=== PATIENT | female | born 2000 | race American Indian/Alaskan Native ===

== ENCOUNTER 2020-04-09 21:47 | Emergency (ER) | payer SELFPAY ==
[2020-04-09] MEDS ORDERED: diphenhydrAMINE 50 MG/ML VIAL IV ONE (22:02)
[2020-04-09] MEDS ORDERED: SODIUM CHLORIDE 0.9% 1000 ML 1,000 ML IV ONE (22:02)
[2020-04-09] MEDS ORDERED: ACETAMINOPHEN 500 MG TAB PO ONE (22:02)
--- NOTE | 2020-04-09 22:10 | Emergency Department Report ---
ED General Adult HPI - General Stated complaint: HEADACHE/BODYACHE Time Seen by Provider: 04/09/20 22:03 Source: patient, RN notes reviewed - History of Present Illness Initial comments: Patient is a 19-year-old -[place] female who presents for headache generalized malaise with body aches x3 days. Patient states intermittent fever but no fever noted in triage today. Patient denies nausea vomiting she is tolerating p.o. intake. Last menstrual cycle 1 month ago. Symptoms are exacerbated by activity. Patient denies chest pain or shortness of breath. - Related Data Previous Rx's Medication Instructions Recorded Last Taken Type Famotidine [Pepcid] 20 mg PO BID #60 tablet 04/10/20 Unknown Rx diphenhydrAMINE [Benadryl CAP] 25 mg PO Q6HR PRN #30 capsule 04/10/20 Unknown Rx predniSONE [Deltasone] 40 mg PO QDAY 5 Days #10 tab 04/10/20 Unknown Rx Allergies Allergy/AdvReac Type Severity Reaction Status Date / Time clindamycin Allergy Hives Verified 04/09/20 22:02 ED Review of Systems ROS: Stated complaint: HEADACHE/BODYACHE Other details as noted in HPI Constitutional: malaise. denies: chills, fever Eyes: denies: eye pain, eye discharge, vision change ENT: denies: ear pain, throat pain Respiratory: denies: cough, shortness of breath, wheezing Cardiovascular: denies: chest pain, palpitations Endocrine: no symptoms reported Gastrointestinal: nausea. denies: abdominal pain, vomiting Genitourinary: denies: urgency, dysuria, discharge Musculoskeletal: back pain, other (body ache ) Skin: denies: rash, lesions Neurological: headache. denies: weakness, numbness, paresthesias, confusion Psychiatric: denies: anxiety, depression Hematological/Lymphatic: denies: easy bleeding, easy bruising ED Past Medical Hx - Medications Home Medications: Home Medications Medication Instructions Recorded Confirmed Last Taken Type Famotidine [Pepcid] 20 mg PO BID #60 tablet 04/10/20 Unknown Rx diphenhydrAMINE [Benadryl CAP] 25 mg PO Q6HR PRN #30 capsule 04/10/20 Unknown Rx predniSONE [Deltasone] 40 mg PO QDAY 5 Days #10 tab 04/10/20 Unknown Rx ED Physical Exam - General General appearance: alert, in no apparent distress - Head Head exam: Present: atraumatic, normocephalic - Eye Eye exam: Present: normal appearance, PERRL, EOMI Pupils: Present: normal accommodation - ENT ENT exam: Present: normal orophraynx, mucous membranes moist, TM's normal bilaterally, normal external ear exam - Neck Neck exam: Present: normal inspection, full ROM. Absent: tenderness, lymphadenopathy - Respiratory Respiratory exam: Present: normal lung sounds bilaterally. Absent: respiratory distress, wheezes, stridor, chest wall tenderness - Cardiovascular Cardiovascular Exam: Present: regular rate, tachycardia, normal heart sounds - GI/Abdominal GI/Abdominal exam: Present: soft, normal bowel sounds. Absent: distended, tenderness, guarding, rebound, rigid, bruit, hernia - Rectal Rectal exam: Present: deferred - Extremities Exam Extremities exam: Present: normal inspection, full ROM. Absent: tenderness, pedal edema, joint swelling - Back Exam Back exam: Present: normal inspection, full ROM. Absent: tenderness, CVA tenderness (R), CVA tenderness (L) - Neurological Exam Neurological exam: Present: alert, oriented X3, CN II-XII intact, normal gait, reflexes normal - Expanded Neurological Exam Expanded Patient oriented to: Present: person, place, time Speech: Present: fluid speech Motor strength exam: RUE: 5, LUE: 5, RLE: 5, LLE: 5 Best Eye Response ([place]): (4) open spontaneously Best Motor Response (Jassi): (6) obeys commands Best Verbal Response (Jassi): (5) oriented [place] Total: 15 - Psychiatric Psychiatric exam: Present: normal affect, normal mood - Skin Skin exam: Present: warm, dry, intact, normal color. Absent: rash ED Course Vital Signs 04/09/20 21:58 Temperature 99.2 F Pulse Rate 125 H Respiratory 18 Rate Blood Pressure 105/67 O2 Sat by Pulse 98 Oximetry ED Medical Decision Making - Lab Data Result diagrams: 04/09/20 22:46 Labs 04/09/20 04/09/20 22:03 22:46 WBC 11.2 H RBC 4.56 Hgb 11.6 Hct 35.6 MCV 78 L MCH 25 L MCHC 33 RDW 16.5 H Plt Count 286 Add Manual Diff Complete Total Counted 100 Seg Neuts % (Manual) 82.0 H Band Neutrophils % 6.0 Lymphocytes % (Manual) 12.0 L Nucleated RBC % Not Reportable Seg Neutrophils # Man 9.2 H Band Neutrophils # 0.7 Lymphocytes # (Manual) 1.3 Abs React Lymphs (Man) 0.0 Monocytes # (Manual) 0.0 Eosinophils # (Manual) 0.0 Basophils # (Manual) 0.0 Metamyelocytes # 0.0 Myelocytes # 0.0 Promyelocytes # 0.0 Blast Cells # 0.0 WBC Morphology Not Reportable Hypersegmented Neuts Not Reportable Hyposegmented Neuts Not Reportable Hypogranular Neuts Not Reportable Smudge Cells Not Reportable Toxic Granulation Not Reportable Toxic Vacuolation Not Reportable Dohle Bodies Not Reportable Pelger-Huet Anomaly Not Reportable Joseph[place] Rods Not Reportable Platelet Estimate Consistent w auto Clumped Platelets Not Reportable Plt Clumps, EDTA Not Reportable Large Platelets Not Reportable Giant Platelets Not Reportable Platelet Satelliting Not Reportable Plt Morphology Comment Not Reportable RBC Morphology Not Reportable Dimorphic RBCs Not Reportable Polychromasia Not Reportable Hypochromasia Not Reportable Poikilocytosis Not Reportable Anisocytosis Not Reportable Microcytosis Not Reportable Macrocytosis Not Reportable Spherocytes 1+ Pappenheimer Bodies Not Reportable Sickle Cells Not Reportable Target Cells Not Reportable Tear Drop Cells Not Reportable Ovalocytes Not Reportable Helmet Cells Not Reportable [place] Bodies Not Reportable [place] Rings Not Reportable [place] Cells Not Reportable Bite Cells Not Reportable Crenated Cell Not Reportable Elliptocytes Not Reportable Acanthocytes (Spur) Not Reportable Rouleaux Not Reportable Hemoglobin C Crystals Not Reportable Schistocytes Not Reportable Malaria parasites Not Reportable Jaun Bodies Not Reportable Hem Pathologist Commnt No Urine Color Yellow Urine Turbidity Slightly-cloudy Urine pH 5.0 Ur Specific [place] 1.017 Urine Protein <15 mg/dl Urine Glucose (UA) Neg Urine Ketones 20 Urine Blood Neg Urine Nitrite Neg Urine Bilirubin Neg Urine Urobilinogen < 2.0 Ur Leukocyte Esterase Neg Urine WBC (Auto) 3.0 Urine RBC (Auto) 2.0 U Epithel Cells (Auto) 3.0 Urine Mucus Few Urine HCG, Qual Negative - Medical Decision Making Headache is resolved with medications given in ED. Patient encouraged to co ntinue to hydrate. Tylenol or Benadryl as needed headache follow-up primary care doctor in 2 to 3 days patient verbalizes agreement and understanding with discharge plan. Patient DC'd home in stable condition at this time.repeat vitals with in normal limits. Critical care attestation.: If time is entered above; I have spent that time in minutes in the direct care of this critically ill patient, excluding procedure time. ED Disposition Clinical Impression: Mild dehydration Headache Qualifiers: Headache type: unspecified Headache chronicity pattern: acute headache Intractability: not intractable Qualified Code(s): R51.9 - Headache, unspecified Disposition: DC-01 TO HOME OR SELFCARE Is pt being admited?: No Does the pt Need Aspirin: No Condition: Stable Instructions: Dehydration, Adult, [id number], General Headache Without Cause Additional Instructions: take medicationst as prescribed , return to ed if symptoms worsen Prescriptions: diphenhydrAMINE [Benadryl CAP] 25 mg PO Q6HR PRN #30 capsule PRN Reason: Headache predniSONE [Deltasone] 40 mg PO QDAY 5 Days #10 tab Famotidine [Pepcid] 20 mg PO BID #60 tablet Referrals: PRIMARY MD MORELIA [Primary Care Provider] - 3-5 Days DANNY SOTO MD [Staff Physician] - 3-5 Days Forms: Work/School Release Form(ED) Time of Disposition: 04:13
[2020-04-09 23:34] LABS: Bilirubin,Urine NEG (Negative); Blood,Urine NEG (Negative); Color,Urine Yellow (Yellow); Mucus,Urine FEW /HPF; Protein,Urine <15 mg/dL mg/dL (Negative); Urobilinogen,Urine < 2.0 mg/dL (<2.0)
[2020-04-09 23:52] LABS: Hematocrit 35.6 % (30.3-42.9); Hemoglobin 11.6 gm/dl (10.1-14.3); Mean Corpuscular HGB Conc 33 % (30-34); Mean Corpuscular Volume 78 fl (79-97); Platelet Count 286 K/mm3 (140-440); Red Blood Count 4.56 M/mm3 (3.65-5.03); Red Cell Distribution Width 16.5 % (13.2-15.2)
[2020-04-10] MEDS ORDERED: SODIUM CHLORIDE 0.9% 1000 ML 1,000 ML IV ONE (00:02)
[2020-04-10] MEDS ORDERED: diphenhydrAMINE 50 MG/ML VIAL IV ONE (00:02)
[2020-04-10] MEDS ORDERED: ACETAMINOPHEN 500 MG TAB PO ONE (00:02)
[2020-04-10 00:03] LABS: HCG Qualitative,Urine Negative (Negative)
[2020-04-10 03:30] LABS: Band Neutrophils # (Manual) 0.7 K/mm3; Platelet Estimate Consistent w Auto; Spherocytes 1+; Total Cells Counted 100
[2020-04-10 06:18] VITALS: BP 102/78
== END 2020-04-10 04:15 | disposition home or self-care (01) ==
LOC: ED 21:47
DX: R51.9 Headache, unspecified (principal); E86.0 Dehydration; Z79.899 Other long term (current) drug therapy; Z88.8 Allergy status to other drugs, medicaments and biological substances
CPT/HCPCS: 36415; 81001; 81025; 85007; 85025; 96361; 96374; 99283; J1200; J7030

== ENCOUNTER 2021-08-14 19:41 | Emergency (ER) | payer SELFPAY ==
[2021-08-14 20:42] LABS: Basophils % (Auto) 0.2 % (0.0-1.8); Hematocrit 40.8 % (30.3-42.9); Lymphocytes # (Auto) 0.5 K/mm3 (1.2-5.4); Lymphocytes % (Auto) 4.7 % (13.4-35.0); Mean Corpuscular HGB Conc 34 % (30-34); Mean Corpuscular Volume 87 fl (79-97); Monocytes # (Auto) 0.6 K/mm3 (0.0-0.8); Monocytes % (Auto) 5.4 % (0.0-7.3); Platelet Count 318 K/mm3 (140-440); Red Cell Distribution Width 13.5 % (13.2-15.2)
[2021-08-14 21:07] LABS: Alanine Aminotransferase 23 units/L (7-56); Albumin 4.9 g/dL (3.9-5); Blood Urea Nitrogen 14 mg/dL (7-17); Calcium 9.8 mg/dL (8.4-10.2); Hemolysis Index 3
[2021-08-14 21:13] LABS: BUN/Creatinine Ratio 20
[2021-08-14 21:14] LABS: Bacteria,Urine 1+ /HPF (Negative); Bilirubin,Urine NEG (Negative); Blood,Urine SM (Negative); Color,Urine Yellow (Yellow); Mucus,Urine 3+ /HPF; Protein,Urine <15 mg/dL mg/dL (Negative); Urobilinogen,Urine < 2.0 mg/dL (<2.0)
[2021-08-15] MEDS ORDERED: HYOSCYAMINE SUBL 0.125 MG TAB SL ONE (00:47)
[2021-08-15] MEDS ORDERED: ONDANSETRON 4 MG ODT TAB PO STA (00:47)
[2021-08-15] MEDS ORDERED: FAMOTIDINE 20 MG TAB PO ONE (00:47)
--- NOTE | 2021-08-15 01:30 | Emergency Department Report ---
ED N/V/D HPI - General Chief complaint: Abdominal Pain Stated complaint: FOOD POISONING Time Seen by Provider: 08/15/21 00:15 Source: patient Mode of arrival: Ambulatory Limitations: No Limitations - History of Present Illness Initial comments: 21-year-old female presents emergency department complaining of possible food poisoning after consuming beef and chicken some hours prior to resulting in stomach cramping and pain with as episodes of nausea vomiting and several episodes of diarrhea. No fever, chills, sweats. No hemoptysis hematemesis hematochezia MD complaint: nausea, vomiting, diarrhea -: Gradual Associated Abdominal Pain: Yes Location: diffuse Radiation: none Severity: mild, moderate Quality: aching Consistency: constant Improves with: none Context: possible food poisoning Associated Symptoms: denies other symptoms - Related Data Previous Rx's Medication Instructions Recorded Last Taken Type Famotidine [Pepcid] 20 mg PO BID #60 tablet 04/10/20 Unknown Rx diphenhydrAMINE [Benadryl CAP] 25 mg PO Q6HR PRN #30 capsule 04/10/20 Unknown Rx predniSONE [Deltasone] 40 mg PO QDAY 5 Days #10 tab 04/10/20 Unknown Rx Allergies Allergy/AdvReac Type Severity Reaction Status Date / Time clindamycin Allergy Hives Verified 04/09/20 22:02 ED Review of Systems ROS: Stated complaint: FOOD POISONING Other details as noted in HPI Comment: All other systems reviewed and negative ED Past Medical Hx - Past Medical History Previous Medical History?: No - Surgical History Past Surgical History?: No - Social History Smoking Status: Never Smoker Substance Use Type: None - Medications Home Medications: Home Medications Medication Instructions Recorded Confirmed Last Taken Type Famotidine [Pepcid] 20 mg PO BID #60 tablet 04/10/20 Unknown Rx diphenhydrAMINE [Benadryl CAP] 25 mg PO Q6HR PRN #30 capsule 04/10/20 Unknown Rx predniSONE [Deltasone] 40 mg PO QDAY 5 Days #10 tab 04/10/20 Unknown Rx ED Physical Exam - General Limitations: No Limitations General appearance: alert, in no apparent distress - Head Head exam: Present: atraumatic, normocephalic - Eye Eye exam: Present: normal appearance - ENT ENT exam: Present: normal exam, mucous membranes moist, TM's normal bilaterally - Neck Neck exam: Present: normal inspection, full ROM - Respiratory Respiratory exam: Present: normal lung sounds bilaterally. Absent: respiratory distress - Cardiovascular Cardiovascular Exam: Present: regular rate, normal rhythm. Absent: systolic murmur, diastolic murmur, rubs, gallop - GI/Abdominal GI/Abdominal exam: Present: soft, tenderness (Vague tenderness to the upper abdomen region. Bowel sounds positive x4 quadrants. No Rovsing, no Thompson Kaur, no Barry sign. No masses appreciated.), normal bowel sounds. Absent: rebound, rigid, diminished bowel sounds, hyperactive bowel sounds, hypoactive bowel sounds, organomegaly, mass, pulsatile mass, hernia - Extremities Exam Extremities exam: Present: normal inspection, normal capillary refill - Back Exam Back exam: Present: normal inspection. Absent: CVA tenderness (R), CVA tenderness (L) - Neurological Exam Neurological exam: Present: alert, oriented X3, CN II-XII intact, normal gait - Psychiatric Psychiatric exam: Present: normal affect, normal mood - Skin Skin exam: Present: warm, dry, intact, normal color. Absent: rash ED Medical Decision Making - Lab Data Result diagrams: 08/14/21 20:17 08/14/21 20:17 Critical care attestation.: If time is entered above; I have spent that time in minutes in the direct care of this critically ill patient, excluding procedure time. ED Disposition Clinical Impression: Abdominal pain, Nausea vomiting and diarrhea Disposition: 01 HOME / SELF CARE / HOMELESS Is pt being admited?: No Does the pt Need Aspirin: No Condition: Stable Instructions: Diarrhea, Adult, Nausea and Vomiting, Adult, Abdominal Pain (ED) Referrals: [facility] [Provider Group] - 3-5 Days
[2021-08-15 03:58] VITALS: BP 101/55
== END 2021-08-15 03:40 | disposition home or self-care (01) ==
LOC: ED 19:41
DX: R19.7 Diarrhea, unspecified (principal); R10.9 Unspecified abdominal pain; R11.2 Nausea with vomiting, unspecified; Z91.09 Other allergy status, other than to drugs and biological substances; Z79.899 Other long term (current) drug therapy
CPT/HCPCS: 36415; 80053; 81001; 85025; 87086; 99283; J3490; Q0162